=== PATIENT | male | born 1955 | race Hispanic/Latino ===

== ENCOUNTER 2020-03-14 07:00 | Day surgery (SDC) | payer OTHER ==
[2020-03-12 14:30] VITALS: BP 140/72
[2020-03-12 15:19] LABS: BASOPHILS % (AUTO) 0.6 % (0.0-5.0); EOSINOPHILS % (AUTO) 2.1 % (0.0-8.0); HEMATOCRIT 45.6 % (42-54); LYMPHOCYTES % (AUTO) 32.2 % (21.0-51.0); MEAN CORPUSCULAR HEMOGLOBIN 27.7 pg (27.0-33.0); MEAN CORPUSCULAR HGB CONC 31.6 g/dL (32.0-36.0); MEAN CORPUSCULAR VOLUME 87.9 fL (79-99); MONOCYTES % (AUTO) 6.5 % (3.0-13.0); NEUTROPHILS % (AUTO) 58.4 % (40.0-77.0); PLATELET COUNT (AUTO) 277 K/uL (130-400); RED BLOOD CELL COUNT(AUTO) 5.19 MIL/uL (4.50-6.20); WHITE BLOOD COUNT (AUTO) 10.1 K/uL (4.8-10.8)
[2020-03-12 15:30] LABS: CREATININE 1.2 mg/dL (0.5-1.5)
[~2020-03-14] VITALS: Ht 162.6 cm; Wt 77.9 kg
[2020-03-14] VITALS (16 sets, daily range): BP systolic 117–138; BP diastolic 59–70
[~2020-03-14 07:00] MED LIST: ASPI-555 PO; KRIL1CAP18 PO; SENN-107 PO
[2020-03-14] MEDS ORDERED: LACTATED RINGERS 1000ML 1,000 ML IV ONE (08:03)
[2020-03-14] MEDS: CEFTRIAXONE SODIUM 1 GM ONE ×2 (08:12→09:10)
[2020-03-14] MEDS ORDERED: ROCURONIUM 10MG/1ML SYR 10 MG/ML ML ONE (09:00)
[2020-03-14] MEDS ORDERED: MIDAZOLAM HCL 1 MG/ML 2ML VIAL ONE (09:00)
[2020-03-14] MEDS ORDERED: LIDOCAINE PF 2% 5ML ABBOJECT ONE (09:00)
[2020-03-14] MEDS ORDERED: FENTANYL CITRATE PF 50 MCG/1 ML 5ML AMP IV ONE (09:00)
[2020-03-14] MEDS ORDERED: PROPOFOL 10 MG/ML 20ML VIAL IV ONE (09:00)
[2020-03-14] MEDS ORDERED: DEXAMETHASONE SOD PHOSPHATE 10MG/ML 1ML VIAL ONE (09:10)
[2020-03-14] MEDS ORDERED: GLYCOPYRROLATE 1 MG/5 ML SYRINGE ONE (09:10)
[2020-03-14] MEDS ORDERED: ONDANSETRON HCL 4 MG/2 ML VIAL ONE (09:10)
[2020-03-14] MEDS ORDERED: NEOSTIGMINE 5MG/5ML SYR IV ONE (09:10)
[2020-03-14] MEDS ORDERED: BUPIVACAINE/PF 0.25% 30ML VIAL IJ ONE (09:21)
[2020-03-14] MEDS ORDERED: BACITRACIN 28.4 GM OINT TP ONE (09:21)
== END 2020-03-14 12:45 ==
LOC: DAH 07:00
PROVIDERS: ATTEND Urology
DX: N50.89 Other specified disorders of the male genital organs (principal); I10 Essential (primary) hypertension; Z98.890 Other specified postprocedural states; Z79.899 Other long term (current) drug therapy
CPT/HCPCS: 36415; 54530; 80048; 85025; A4213; A4215; A4221; A4222; A4223; A4510; A4600; A4663; A6260; J0696; J1100; J2001; J2250; J2405; J2704; J2710; J3010; J3490 ×2; J7030 ×2; J7120 ×2

== ENCOUNTER → 2022-05-31 | Outpatient (CLI) | payer OTHER ==
[~2022-05-31] MED LIST changes: -ASPI-555 PO; -KRIL1CAP18 PO
== END | disposition home or self-care (01) ==
LOC: SHCH 14:39
PROVIDERS: ATTEND Internal Medicine Cardiovascular Disease
DX: I10 Essential (primary) hypertension (principal); R01.1 Cardiac murmur, unspecified
CPT/HCPCS: 93306